=== PATIENT | male | born 1960 | race Caucasian/White ===

== ENCOUNTER 2016-06-08 22:06 | Emergency (ER) | payer OTHER ==
[~2016-06-08] VITALS: Ht 177.8 cm; Wt 86.4 kg
[2016-06-08 22:18] VITALS: BP 150/85; PULSE 93; RESP 23; O2SAT 98
--- NOTE | 2016-06-08 22:20 | ED.REPORT ---
HPI-General Illness Date of Service Jun 08, 2016 ED Provider: Myles Gomez MD Patient is a 55 year old male who presents to the ED after he developed chest palpitations this evening. Patient reports having associated chest pressure and bloating when experiencing these symptoms. He used his father's portable heart rate monitor, which reported that his heart rate was in the 170s. Patient states that his palpitations lasted for approximately 1 hour, resolved on arrival to the ED. Patient had a similar episode last year. Patient denies excessive coffee use or drinking energy drinks. He is a nonsmoker. Patient reports a family history of coronary artery disease and myocardial infarction, but only in old age. Patient denies a cough, shortness of breath, dyspnea on exertion, or fever. Nursing Notes Stated Complaint: RAPID HEART RATE Chief Complaint: Dysrhythmia/Cardiac Nursing Notes Reviewed: Yes Allergies: Coded Allergies: Penicillins (Verified Allergy, Severe, Anaphylaxis, 10/24/15) General Time Seen by MD: 22:20 Chief Complaint Other (palpitations) Hx Obtained From: Patient Arrived By: Walk-in Sudden in Onset?: No Onset Occurred: 1 - 4 hours ago Symptom Duration: 46 - 59 minutes Location: : Chest Quality: Pressure Severity: Current: No pain currently Severity: Maximum: Mild Recent Healthcare: No recent doctor visit, No recent hospitalization Similar Sx Previous: Yes Past Medical History Past Medical History hiatal hernia Past Surgical History wrists for carpal tunnel Family History Reports: Coronary artery disease, Denies: CAD < 40 years old Smoking History Never Smoker Social History Alcohol Use: 1-3 per week Drug Use: Denies drug use Other Social History: Good social support, , Local resident Occupation works as a farmer Review of Systems Full Review of Systems Constitutional: Denies: Chills, Fever Respiratory: Denies: Dyspnea on exertion, Non-productive cough, Shortness of breath Cardiovascular: Reports: Chest pain, Palpitations GI: Reports: Abdominal pain (abdominal bloating) Complete sys rev & neg: except as marked. Physical Exam Vital Signs Vital Signs Date Time Temp Pulse Resp B/P Pulse Ox O2 Delivery O2 Flow Rate FiO2 06/09/16 00:58 37 79 24 128/80 96 Room Air 06/08/16 22:18 36.6 93 23 150/85 98 Room Air Initial VS: Reviewed Head / Eyes: Atraumatic, Normocephalic, PERRL ENT: Conjunctiva normal, No scleral icterus Skin: Warm, Dry, No cyanosis Neurologic: Alert, Oriented, Nonfocal Psychiatric: Mood/affect normal, Behavior normal, Normal thought content General/Constitutional: Awake, Alert, No acute distress Neck: Supple, No JVD Respiratory / Chest: Breath sounds NL, Breath sounds = bilat, No respiratory distress, No rales, No rhonchi, No wheezing Cardiovascular: Heart rate NL, Regular rhythm, Heart sounds NL, No gallop, No murmurs Abdomen: Soft, Non-tender, No guarding, No rebound Upper Extremities Upper Extremity / MS: No swelling, No edema Lower Extremity / Pelvis / MS: No swelling, No edema Interpretation & Diagnostics Lab Results Interpretation Result Diagram: 06/08/16222206/08/162222 Test 06/08/16 22:23 White Blood Count 6.6th/mm3 (3.8-10.1) Red Blood Count 4.69mil/mm3 (4.40-5.80) Hemoglobin 14.8g/dL (13.8-17.2) Hematocrit 41.0% (41.0-50.0) Mean Corpuscular Volume 87.4fL (81-100) Mean Corpuscular Hemoglobin 31.6pg (27.0-35.0) Mean Corpuscular Hemoglobin Concent 36.1% (32.0-37.0) Red Cell Distribution Width 12.7% (12.3-15.4) Platelet Count 248bil/L (150-400) Neutrophils (%) (Auto) 57.6% (40-74) Lymphocytes (%) (Auto) 29.0% (14-46) Monocytes (%) (Auto) 9.9% (4-12) Eosinophils (%) (Auto) 2.7% (0-5) Basophils (%) (Auto) 0.5% (0-3) Sodium Level 137mEq/L (134-144) Potassium Level 3.6mEq/L (3.5-5.2) Chloride Level 100mEq/L (97-108) Carbon Dioxide Level 21mmol/L (18-29) Blood Urea Nitrogen 16mg/dL (6-24) Creatinine 1.10mg/dL (0.76-1.27) Estimat Glomerular Filtration Rate 73mL/min (>59) Glucose Level 132mg/dL (60-99) Calcium Level 9.0mg/dL (8.5-10.1) Magnesium Level 2.1mg/dL (1.6-2.6) Total Bilirubin 0.2mg/dL (0.0-1.2) Aspartate Amino Transf (AST/SGOT) 26U/L (0-50) Alanine Aminotransferase (ALT/SGPT) 33U/L (0-44) Alkaline Phosphatase 87U/L (25-150) Troponin T 0.010ug/L (0.0-0.011) Pro-B-Type Natriuretic Peptide 51.13pg/mL (0-210) Total Protein 7.1g/dL (6.4-8.4) Albumin 4.6g/dL (3.4-5.0) Thyroid Stimulating Hormone (TSH) 6.180uIU/mL (0.450-4.500) Free Thyroxine 1.12ng/dL (0.82-1.77) Hold Leone Top Tube Received (Received) ECG Interpretation ECG Interpretation: Sinus rhythm, Rate [address] and T wave changes laterally Time: 22:26 Interpreted by: ED physician X-Ray Chest Interpretation Chest Xray Interpretation: Impression: No acute cardiopulmonary process. View: Portable Interpretation / Wet Read by: Wet read ED physician Re-Eval/Medical Decision Med Decision/Clinical Course 55-year-old low risk for coronary artery disease, presents with a rapid dysrhythmia that was probably atrial fibrillation. It was not recorded prior to its termination. His EKG is nonacute and unremarkable, enzymes are negative, and he has been stable on the monitor now for more than two hours without recurrent A. fib or SVT. TSH is slightly high. He is due for knee surgery in about a month. Would consider stress testing prior. Thyroid functions need to be repeated as a complete set and his thyroid status evaluated. Discharged in stable condition for follow-up with PCP. Prompt return if any prolonged palpitations to try and obtain a reading by awake overnight monitor. Source of Hx: Old records Time of Eval: 00:14 Patient Status: Condition improved Re-Evaluation/Progress Note: Rechecked the patient. Discussed the results of his labs, chest x-ray, and EKG. Labs found mild hypothyroidism, which should be worked-up by his PCP. Patient will be undergoing surgery for a torn meniscus in the next month and it was advised that he have a stress test prior to this procedure. Patient understands and agrees with the plan to be discharged home. Discharge instructions and follow-up discussed. All questions were addressed. Return to the ED warnings given. Counseled Regarding: Diagnosis, Lab results, Need for follow-up, When/why to return to ED Discharge & Departure Primary Impression: Palpitations Additional Impression: Hypothyroid Hypothyroidism type: unspecified Qualified Code: E03.9 - Hypothyroidism, unspecified Disposition: Home Discharge Condition All VS Reviewed: Yes Condition: Stable Patient Instructions: Palpitations (ED) Additional Instructions: There is a fair chance this was an episode of atrial fibrillation tonight. It might also have been paroxysmal supraventricular tachycardia. If you have any prolonged palpitations, do not wait, but get to the hospital or to a fire station, where a rhythm strip can be obtained. If this keeps happening, you will need a Holter monitor, and your doctor can arrange that. You are low risk for coronary artery disease, but before you have your surgery, it may be advisable to have a stress test, given the events of tonight. You were very slightly low on thyroid by screening scan that we did in your lab tonight. This needs to be define further with a full set of thyroid function tests. Your doctor can arrange that. Return here promptly for any recurrent symptoms that are prolonged, or any new symptoms of concern, particularly shortness of breath or other issues. Referrals: Low Bloom MD (PCP) Art Attestation Portions of this note were transcribed by Fatoumata Moore. I, Dr. Gomez personally performed the history, physical exam and medical decision-making; I reviewed and confirmed the accuracy of the information in the transcribed note. Signed by: Art Damon, 06/09/2016 0032 copies to: Low Bloom MD, Christopher W MD Jun 08, 2016 22:20 Fatoumata Moore Jun 08, 2016 22:28
[2016-06-08 22:32] LABS: BASOPHILS % (AUTO) 0.5 % (0-3); EOSINOPHILS % (AUTO) 2.7 % (0-5); MONOCYTES % (AUTO) 9.9 % (4-12); Mean Corpuscular Hemoglobin 31.6 pg (27.0-35.0); Mean Corpuscular Volume 87.4 fL (81-100); NEUTROPHILS % (AUTO) 57.6 % (40-74); Platelet Count 248 bil/L (150-400)
[2016-06-08 22:53] LABS: TROPONIN T 0.01 ug/L (0.0-0.011)
[2016-06-08 23:04] LABS: Magnesium 2.1 mg/dL (1.6-2.6)
[2016-06-09 00:58] VITALS: BP 128/80; PULSE 79; RESP 24; O2SAT 96
--- NOTE | 2016-06-09 08:08 | DRSVH ---
PROCEDURE: X-RAY CHEST ONE VIEW, PORTABLE ([id number]) INDICATIONS: CHEST PAIN TECHNIQUE: One view of the chest was acquired. COMPARISON: None. FINDINGS: Surgical changes and devices: None. Lungs and pleura: No pleural effusions or pneumothorax. Lungs are clear. Mediastinum: Mediastinal contours appear normal. Heart size is normal. Bones and chest wall: No suspicious bony lesions. Overlying soft tissues appear unremarkable. IMPRESSION: No acute cardiopulmonary findings. Dictated by: Amy Nam M.D. on 06/09/2016 at 8:07 Approved by: Amy Nam M.D. on 06/09/2016 at 8:07
== END 2016-06-09 00:50 | disposition home or self-care (01) ==
LOC: SED 22:06
DX: R00.2 Palpitations (principal); E03.9 Hypothyroidism, unspecified; R07.89 Other chest pain; Z88.0 Allergy status to penicillin